=== PATIENT | female | born 2005 | race Caucasian/White ===

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

== ENCOUNTER 2024-05-08 12:45 | Emergency (ER) | payer OTHER, SELFPAY ==
[~2024-05-08] VITALS: Ht 160 cm; Wt 60.1 kg
[~2024-05-08 12:45] MED LIST changes: +CEFD1CAP9 PO; -CEFD300C41 PO; +MONT-5 PO; +ONDA-282 PO; -SING10TA32 PO; +VENTAER INH
[2024-05-08 12:46] VITALS: BP 141/87; TEMP 97.7; O2SAT 99
[2024-05-08] MEDS ORDERED: DOXY100C82 PO (13:49)
== END 2024-05-08 14:05 | disposition home or self-care (01) ==
LOC: M ED 12:45
DX: L02.224 Furuncle of groin (principal); J45.909 Unspecified asthma, uncomplicated; Z88.0 Allergy status to penicillin

== ENCOUNTER 2024-07-22 07:38 | Emergency (ER) | payer OTHER, SELFPAY ==
[~2024-07-22] VITALS: Ht 157.5 cm; Wt 60.0 kg
[~2024-07-22 07:38] MED LIST changes: +DOXY100C82 PO
[2024-07-22] MEDS: PROMETHAZINE 25MG/ML 1ML VIAL IV ONE (08:29)
[2024-07-22] MEDS: NS 1,000 ML IV ONE (08:29)
[2024-07-22 08:46] LABS: BLOOD UREA NITROGEN 13 MG/DL (9-23); CARBON DIOXIDE LEVEL 24 MMOL/L (20-31); CHLORIDE LEVEL 107 MMOL/L (98-107); CREATININE FOR GFR 0.58 MG/DL (0.55-1.30); GLUCOSE, FASTING 78 MG/DL (60-100); POTASSIUM SERUM 3.8 MMOL/L (3.5-5.1); SODIUM LEVEL 135 MMOL/L (136-145)
[2024-07-22] MEDS ORDERED: PROM12.54 PR (10:19)
[2024-07-22 10:25] VITALS: BP 112/57; TEMP 97.4; O2SAT 100
== END 2024-07-22 10:48 | disposition home or self-care (01) ==
LOC: M ED 07:38
DX: O21.9 Vomiting of pregnancy, unspecified (principal); O99.519 Diseases of the respiratory system complicating pregnancy, unspecified trimester
CPT/HCPCS: 80048; 96374; 99284; J2550

== ENCOUNTER → 2024-08-25 | Outpatient (CLI) | payer MEDICAID, OTHER, SELFPAY ==
[~2024-08-25] MED LIST changes: +PROM12.54 PR
[2024-08-25 18:37] LABS: HEMATOCRIT 34.4 % (36.0-47.0); HEMOGLOBIN 11.4 g/dl (12.0-15.5); MEAN CORPUSCULAR HEMOGLOBIN 30.1 pg (27.0-33.0); MEAN CORPUSCULAR HGB CONC 33.1 g/dl (32.0-36.5); MEAN CORPUSCULAR VOLUME 90.8 fl (80.0-96.0); PLATELET COUNT, AUTOMATED 255 10^3/uL (150-450); RED BLOOD COUNT 3.79 10^6/uL (4.00-5.40); WHITE BLOOD COUNT 10.5 10^3/uL (4.0-10.0)
[2024-08-25 19:27] LABS: HIV 1&2 SCREEN NEGATIVE (NEGATIVE)
[2024-08-25 19:35] LABS: HEPATITIS C VIRUS ABY INDEX < 0.02 INDEX (<0.8)
[2024-08-25 20:37] LABS: GC DNA AMPLIFICATION NEGATIVE (NEGATIVE)
== END ==
LOC: M PLALAB 14:35
PROVIDERS: ATTEND Advanced Practice Midwife
DX: Z34.81 Encounter for supervision of other normal pregnancy, first trimester (principal)

== ENCOUNTER → 2024-08-25 | Outpatient (REF) | payer MEDICAID | LOC: M PLALAB 14:24 | PROVIDERS: ATTEND Advanced Practice Midwife | DX: Z34.81 Encounter for supervision of other normal pregnancy, first trimester (principal) ==

== ENCOUNTER 2024-08-27 08:27 | Emergency (ER) | payer MEDICAID, OTHER, SELFPAY ==
[~2024-08-27] VITALS: Ht 157.5 cm; Wt 57.7 kg
[2024-08-27] MEDS: METOCLOPRAMIDE 10MG TAB PO ONE (09:43)
[2024-08-27 11:42] VITALS: BP 111/73; TEMP 98.2; O2SAT 97
== END 2024-08-27 11:45 | disposition home or self-care (01) ==
LOC: M ED 08:27
DX: O21.9 Vomiting of pregnancy, unspecified (principal); Z3A.12 12 weeks gestation of pregnancy; O99.511 Diseases of the respiratory system complicating pregnancy, first trimester; J45.909 Unspecified asthma, uncomplicated; Z88.0 Allergy status to penicillin; Z88.1 Allergy status to other antibiotic agents; Z79.51 Long term (current) use of inhaled steroids

== ENCOUNTER 2024-09-03 12:18 | Emergency (ER) | payer OTHER ==
[~2024-09-03] VITALS: Ht 157.5 cm; Wt 59.3 kg
[2024-09-03] MEDS ORDERED: BREAMIS10 MC (15:11)
[2024-09-03] MEDS ORDERED: VENTAER INH (15:11)
[2024-09-03] MEDS: IPRATROPIUM 0.5MG/ALBUTEROL 2.5MG INH SOL UD 3ML (DUONEB) NEB ONE (15:18)
[2024-09-03 15:31] LABS: RSV AMPLIFICATION NEGATIVE (NEGATIVE)
[2024-09-03 15:45] VITALS: BP 118/94; TEMP 98.6; O2SAT 100
== END 2024-09-03 15:50 | disposition home or self-care (01) ==
LOC: M ED 12:18
DX: J06.9 Acute upper respiratory infection, unspecified (principal); R06.2 Wheezing; F32.A Depression, unspecified; F41.9 Anxiety disorder, unspecified; Z88.0 Allergy status to penicillin; Z88.1 Allergy status to other antibiotic agents; Z79.52 Long term (current) use of systemic steroids

== ENCOUNTER → 2024-09-24 | Outpatient (REF) | payer OTHER, MEDICAID ==
[~2024-09-24] MED LIST changes: +BREAMIS10 MC
== END ==
LOC: M SFHCPLAZ 11:25
PROVIDERS: ATTEND Nurse Practitioner Family
DX: Z34.82 Encounter for supervision of other normal pregnancy, second trimester (principal)

== ENCOUNTER → 2024-10-29 | Outpatient (CLI) | payer MEDICAID, OTHER | LOC: M RAD 07:52 | PROVIDERS: ATTEND Nurse Practitioner Family | DX: Z34.82 Encounter for supervision of other normal pregnancy, second trimester (principal) ==

== ENCOUNTER → 2024-12-08 | Outpatient (CLI) | payer MEDICAID, OTHER ==
[2024-12-08 12:06] LABS: GC DNA AMPLIFICATION NEGATIVE (NEGATIVE)
[2024-12-08 12:16] LABS: GLUCOSE CHALLENGE TEST 1 HOUR 67 MG/DL (LESS THAN 140); HEMATOCRIT 34.3 % (36.0-47.0); HEMOGLOBIN 11.1 g/dl (12.0-15.5); MEAN CORPUSCULAR HGB CONC 32.4 g/dl (32.0-36.5); MEAN CORPUSCULAR VOLUME 92.7 fl (80.0-96.0); PLATELET COUNT, AUTOMATED 289 10^3/uL (150-450); WHITE BLOOD COUNT 10.1 10^3/uL (4.0-10.0)
[2024-12-08 12:51] LABS: HIV 1&2 SCREEN NEGATIVE (NEGATIVE)
[2024-12-08 12:59] LABS: HEPATITIS C VIRUS ABY INDEX < 0.02 INDEX (<0.8)
== END ==
LOC: M LAB 09:18
PROVIDERS: ATTEND Nurse Practitioner Family
DX: Z34.82 Encounter for supervision of other normal pregnancy, second trimester (principal)

== ENCOUNTER → 2025-02-13 | Outpatient (REF) | payer OTHER, MEDICAID ==
[~2025-02-13] MED LIST changes: +DOXY-442 PO; -DOXY100C82 PO
== END ==
LOC: M SFHCWAGY 16:50
PROVIDERS: ATTEND Advanced Practice Midwife
DX: Z34.81 Encounter for supervision of other normal pregnancy, first trimester (principal)

== ENCOUNTER → 2025-02-19 | Outpatient (CLI) | payer MEDICAID, OTHER | LOC: M RAD 14:03 | PROVIDERS: ATTEND Obstetrics & Gynecology | DX: O26.843 Uterine size-date discrepancy, third trimester (principal); Z3A.37 37 weeks gestation of pregnancy ==

== ENCOUNTER 2025-02-24 20:52 | Inpatient (IN) | payer MEDICAID, OTHER ==
[~2025-02-24] VITALS: Ht 157.5 cm; Wt 75.3 kg
[2025-02-24 21:05] VITALS: BP 134/83
[2025-02-24] MEDS ORDERED: OXYTOCIN DRIP 30 UNITS in IV 1 EA IV PRN ×3 (21:05)
[2025-02-24] MEDS ORDERED: CARBOPROST TROMETHAMINE 250 MCG/ML AMP IM PRN (21:05)
[2025-02-24] MEDS ORDERED: OXYTOCIN INJ 10UNITS/ML 1ML VIAL IM PRN (21:05)
[2025-02-24] MEDS ORDERED: METHYLERGONOVINE MALEATE 0.2MG/ML 1ML VIAL IM PRN (21:05)
[2025-02-24] MEDS ORDERED: LIDOCAINE 1% MDV 20ML VIAL INFIL PRN (21:05)
[2025-02-24] MEDS ORDERED: HOME MED LIST COMPLETE! XX SCH (21:10)
[2025-02-24] MEDS ORDERED: REGL10TA6 PO (21:10)
[2025-02-24 21:35] LABS: HEMATOCRIT 31.7 % (36.0-47.0); HEMOGLOBIN 10.2 g/dl (12.0-15.5); MEAN CORPUSCULAR HEMOGLOBIN 27.7 pg (27.0-33.0); MEAN CORPUSCULAR HGB CONC 32.2 g/dl (32.0-36.5); MEAN CORPUSCULAR VOLUME 86.1 fl (80.0-96.0); PLATELET COUNT, AUTOMATED 301 10^3/uL (150-450); RED BLOOD COUNT 3.68 10^6/uL (4.00-5.40); WHITE BLOOD COUNT 10.6 10^3/uL (4.0-10.0)
[2025-02-24] MEDS: miSOPROStol 50MCG 1/2 TABLET SL SCH (22:00)
[2025-02-24 22:02] VITALS: BP 121/73
[2025-02-24 22:26] LABS: HIV 1&2 SCREEN NEGATIVE (NEGATIVE)
[2025-02-25] VITALS (44 sets, daily range): BP systolic 95–141; BP diastolic 52–88; O2SAT 97
[2025-02-25] MEDS: PROMETHAZINE 25MG/ML 1ML VIAL IV ONE (01:56)
[2025-02-25] MEDS: BUTORPHANOL 2 MG/ML 1ML VIAL IV ONE (01:56)
[2025-02-25] MEDS: ceFAZolin SOD 2 GM IV ONCE IV ONE (08:11)
[2025-02-25] MEDS: LR 1,000 ML IV SCH (08:12)
[2025-02-25] MEDS: OXYTOCIN DRIP 30 UNITS in IV 1 EA IV SCH (08:30)
[2025-02-25] MEDS ORDERED: FENTANYL 2MCG/ML ROPIVACAINE 0.2% IN 0.9% NACL 100ML IVBAG As Ordered ONE (11:54)
[2025-02-25] MEDS ORDERED: LR 500 ML IV PRN (12:00)
[2025-02-25] MEDS ORDERED: EPIDURAL/PCA KEYS XX PRN (12:00)
[2025-02-25] MEDS ORDERED: diphenhydrAMINE 50MG/ML VIAL IV PRN (12:00)
[2025-02-25] MEDS ORDERED: NALOXONE INJ 0.4MG/1ML VIAL IV PRN (12:00)
[2025-02-25] MEDS ORDERED: ePHEDrine SULFATE 25 MG/5 ML(5MG/ML) SYRINGE IVP PRN (12:00)
[2025-02-25] MEDS: FENTANYL/ROPIVACAINE/NACL BAG 100 ML EPIDURAL SCH (13:10)
[2025-02-25 14:50] LABS: HEPATITIS C VIRUS ABY INDEX 0.03 INDEX (<0.8)
[2025-02-25] MEDS: ceFAZolin SOD 1 GM in DEXTROSE 5% (D5W) ADV/MINI-BAG 50 ML IV SCH (16:00)
[2025-02-25] MEDS ORDERED: IBUPROFEN 600MG TAB PO PRN (17:30)
[2025-02-25] MEDS: ONDANSETRON 4MG 2ML VIAL IV PRN (17:30)
[2025-02-25] MEDS ORDERED: METHYLERGONOVINE MALEATE 0.2 MG TAB PO PRN (17:30)
[2025-02-25] MEDS ORDERED: DOCUSATE SODIUM 100MG CAPSULE PO PRN (17:30)
[2025-02-25] MEDS ORDERED: ACETAMINOPHEN 325 MG TAB PO PRN (17:30)
[2025-02-25] MEDS: ACETAMINOPHEN 500 MG TAB PO PRN (18:01)
[2025-02-25] MEDS: TRANEXAMIC ACID INJection 1,000 MG in NS 100 ML IV PRN (18:13)
[2025-02-26] MEDS: IBUPROFEN 800 MG TAB PO PRN (02:17)
[2025-02-26 06:00] VITALS: BP 100/56; O2SAT 98
[2025-02-26] MEDS: PRENATAL VITAMINS CHEWABLE TABLET PO SCH (09:23)
[2025-02-26] MEDS: DIBUCAINE 1% OINTMENT 30GM TOP PRN (09:24)
[2025-02-26 17:59] VITALS: BP 146/78; O2SAT 98
[2025-02-27 06:08] VITALS: BP 119/77; O2SAT 99
[2025-02-27] MEDS: RHOGAM 300MCG (1500IU) INJ IM SCH (07:49)
[2025-02-27] MEDS: MEASLES,MUMPS,RUBELLA VACCINE INJ (MMR-II) SC.IMMUN ONE (09:00)
== END 2025-02-27 15:45 | disposition home or self-care (01) | DRG 560 ==
LOC: M LDI 20:52 → M OBS 02-25 20:00
PROVIDERS: ADMIT Specialist; ATTEND Advanced Practice Midwife
PROC: 3E0P7GC Introduction of Other Therapeutic Substance into Female Reproductive, Via Natural or Artificial Opening (ICD-10-PCS; 2025-02-24)
PROC: 10E0XZZ Delivery of Products of Conception, External Approach (ICD-10-PCS; principal; 2025-02-25)
DX: O36.5933 Maternal care for other known or suspected poor fetal growth, third trimester, fetus 3 (principal); O99.824 Streptococcus B carrier state complicating childbirth; Z3A.38 38 weeks gestation of pregnancy; Z88.0 Allergy status to penicillin; Z79.899 Other long term (current) drug therapy; Z37.0 Single live birth

== ENCOUNTER 2025-06-20 22:50 | Emergency (ER) | payer MEDICAID, OTHER ==
[~2025-06-20] VITALS: Ht 157.5 cm; Wt 77.7 kg
[~2025-06-20 22:50] MED LIST changes: +PROZ10CA11 PO; -PROZ10CA7 PO
[2025-06-21 00:18] LABS: ALT/SGPT 200 U/L (7.0-40); AST/SGOT 59 U/L (<34); CALCIUM LEVEL 8.6 MG/DL (8.5-10.1); CARBON DIOXIDE LEVEL 22 MMOL/L (20-31); CHLORIDE LEVEL 107 MMOL/L (98-107); CREATININE FOR GFR 0.64 MG/DL (0.55-1.30); GLOMERULAR FILTRATION RATE > 90.0 (>60); POTASSIUM SERUM 3.6 MMOL/L (3.5-5.1); SODIUM LEVEL 142 MMOL/L (136-145)
[2025-06-21 01:11] LABS: HCG, SERUM QUANTITATIVE < 2.6 MIU/ML (<4.2)
[2025-06-21] MEDS: ONDANSETRON 4MG 2ML VIAL IV ONE (01:37)
[2025-06-21] MEDS: NS (Normal Saline) 0.9% 1,000 ML IV ONE (01:37)
[2025-06-21] MEDS: KETOROLAC 30 MG/ML 1 ML VIAL IV ONE (01:37)
[2025-06-21 01:42] LABS: BASO # 0.0 10^3/uL (0.0-0.2); BASO % 0.2 % (0.0-1.0); EOS # 0.6 10^3/uL (0.0-0.5); EOS % 4.8 % (0.0-3.0); LYMPH # 0.6 10^3/uL (1.5-5.0); LYMPH % 4.8 % (24.0-44.0); MONO # 0.4 10^3/uL (0.0-0.8); MONO % 3.2 % (2.0-8.0); NEUTROPHILS # 9.9 10^3/uL (1.5-8.5); NEUTROPHILS % 86.3 % (36.0-66.0); PLATELET COUNT, AUTOMATED 243 10^3/uL (150-450)
[2025-06-21] MEDS ORDERED: ISOVUE-370 76% 100 ML VIAL As Ordered ONE (01:51)
[2025-06-21 01:57] LABS: MONO SCRN NEGATIVE (NEGATIVE)
[2025-06-21] MEDS: ACETAMINOPHEN *IV* 1,000 MG in IV 1 EA IV ONE (02:30)
[2025-06-21 02:31] LABS: KETONE, URINE AUTO RFX NEGATIVE (NEGATIVE); MUCUS, URINE RFX SMALL (NEGATIVE); NITRITE, URINE AUTO RFX NEGATIVE (NEGATIVE); RBC, URINE AUTO RFX 3 /HPF (0-3); SQUAM EPITHELIAL CELL UR AURFX 1 /HPF (0-6)
[2025-06-21 02:33] LABS: LEUKOCYTE ESTERASE UR AUTO RFX 1+ (NEGATIVE); WBC, URINE AUTO RFX 19 /HPF (0-3)
[2025-06-21 03:58] VITALS: BP 111/58; TEMP 98.9; O2SAT 99
== END 2025-06-21 04:11 | disposition home or self-care (01) ==
LOC: M ED 22:50
DX: R50.9 Fever, unspecified (principal); R51.9 Headache, unspecified; R10.9 Unspecified abdominal pain; J45.998 Other asthma; F41.9 Anxiety disorder, unspecified; F32.A Depression, unspecified; Z88.0 Allergy status to penicillin
CPT/HCPCS: 71046; 74177; 80053; 81001; 83605; 84702; 85025; 86308; 87086; 87486; 87581; 87633; 87798; 87880; 93005; 96361; 96365; 96375; 99284; J0131; J1885; J2405; Q9967